=== PATIENT | female | born 1985 | race African-American/Black ===

== ENCOUNTER → 2017-01-12 | Outpatient (CLI) | payer OTHER ==
[2016-05-24 10:40] VITALS: BP 157/80
[~2017-01-12] MED LIST: ALBU8.5H6; AMLO5TAB4 PO; FLUT1DIS3 IH; LOSA1TAB7 PO; METF500T4 PO; METR500T PO; PRED20TA PO; RISP0.2519 PO
--- NOTE | 2017-01-12 13:22 | RAD ---
Indication small palpable abnormality right breast. Grayscale images were obtained. In addition to images submitted by the technologist real time examination was performed by me. At approximately the 3:00 position of the right breast, 3 to 4 cm from the nipple, where the patient's physician reportedly felt a mass there is a small hypoechoic, approximately 5 mm, nodule which has very benign characteristics on ultrasound. It likely reflects either a fibroadenoma or a complicated cyst. No flow is seen within the mass. IMPRESSION: Probable benign small mass 3:00 position right breast. Follow-up ultrasound in 6 months suggested to document stability BI-RADS 3. Probably benign. Follow-up in 6 months
--- NOTE | 2017-01-12 13:27 | RAD ---
DATE: 01/12/2017 EXAM: DIGITAL DIAGNOSTIC BILATERAL HISTORY: Lump right breast COMPARISON: None. This is a initial study. Note is made of the positive family history for breast malignancy This study was interpreted with the benefit of Computerized Aided Detection (CAD). FINDINGS: Breast Density: SCATTERED The breast parenchyma shows scattered fibroglandular densities. Breast parenchyma level B. The area of concern was marked. No abnormality is seen in either breast. No abnormality is seen in the area of concern in the right breast. Targeted ultrasound of the right breast was performed which is the subject of a separate dictation IMPRESSION: Benign findings. If there is a discrete, palpable, mass in the breast biopsy may be warranted despite unremarkable imaging. BI-RADS CATEGORY: 2 BENIGN FINDING(S) RECOMMENDED FOLLOW-UP: CLIN FOLLOW UP IMAGING CLINICALLY INDICATED PQRS compliance statement: Patient information was entered into a reminder system with a target due date as clinically warranted for the next mammogram. Mammography is a sensitive method for finding small breast cancers, but it does not detect them all and is not a substitute for careful clinical examination. A negative mammogram does not negate a clinically suspicious finding and should not result in delay in biopsying a clinically suspicious abnormality. "Our facility is accredited by the [employer] Mammography Program."
== END | disposition home or self-care (01) ==
LOC: US 12:33
PROVIDERS: ATTEND Family Medicine
DX: Z00.01 Encounter for general adult medical examination with abnormal findings (principal); N63 Unspecified lump in breast
CPT/HCPCS: 76641; G0204; 77066

== ENCOUNTER 2017-05-21 16:20 | Emergency (ER) | payer OTHER ==
[2017-05-21 16:42] VITALS: BP 167/84
[2017-05-21] MEDS ORDERED: DIPH25CA58 PO (16:42)
--- NOTE | 2017-05-21 16:42 | PHYS DOC ---
Past Medical History Past Medical History: Arthritis, Asthma, Diabetes-Type II, Hypertension Additional Past Medical Histor: POST DIABETIC TREATED WITH DIET Past Surgical History: Additional Past Surgical Histo: cardiac cath without stent placement Alcohol Use: Occasionally Drug Use: None Adult General Chief Complaint Chief Complaint: INSECT BITE HPI HPI Patient is a 32 year old female presents to the emergency department with an insect sting to the right medial thigh. She states that the insect stung her approximately 15 minutes ago. Chest no complaints of shortness of breath. She states the site of the sting does itch. Review of Systems Review of Systems Constitutional: Denies fever or chills [] Eyes: Denies change in visual acuity, redness, or eye pain [] HENT: Denies nasal congestion or sore throat [] Respiratory: Denies cough or shortness of breath [] Cardiovascular: No additional information not addressed in HPI [] GI: Denies abdominal pain, nausea, vomiting, bloody stools or diarrhea [] : Denies dysuria or hematuria [] Musculoskeletal: Denies back pain or joint pain [] Integument:itching Neurologic: Denies headache, focal weakness or sensory changes [] Endocrine: Denies polyuria or polydipsia [] Allergies Allergies Allergies Coded Allergies Type Severity Reaction Last Updated Verified No Known Drug Allergies 01/18/15 No Physical Exam Physical Exam Constitutional: Well developed, well nourished, no acute distress, non-toxic appearance. [] HENT: Normocephalic, atraumatic, bilateral external ears normal, oropharynx moist, no oral exudates, nose normal. [] Eyes: PERRLA, EOMI, conjunctiva normal, no discharge. [] Neck: Normal range of motion, no tenderness, supple, no stridor. [] Cardiovascular:Heart rate regular rhythm, no murmur [] Lungs & Thorax: Bilateral breath sounds clear to auscultation [] Abdomen: Bowel sounds normal, soft, no tenderness, no masses, no pulsatile masses. [] Skin: Right medial thigh, proximal, 3 cm area of raised skin, mildly pink, nontender to palpate. Back: No tenderness, no CVA tenderness. [] Extremities: No tenderness, no cyanosis, no clubbing, ROM intact, no edema. [] Neurologic: Alert and oriented X 3, normal motor function, normal sensory function, no focal deficits noted. [] Psychologic: Affect normal, judgement normal, mood normal. [] EKG EKG [] Radiology/Procedures Radiology/Procedures [] Course & Med Decision Making Course & Med Decision Making Pertinent Labs and Imaging studies reviewed. (See chart for details) []Patient's having a localized allergic reaction. She'll be given prednisone 50 mg by mouth in the emergency department, Benadryl 25 mg by mouth in the emergency department. She is advised to use [id number] as labeled and is indicated for symptom management. Dragon Disclaimer Dragon Disclaimer This electronic medical record was generated, in whole or in part, using a voice recognition dictation system. Departure Departure Impression: Primary Impression: Allergic reaction to insect sting Disposition: HOME, SELF-CARE Condition: STABLE Referrals: CANDELARIA CRESPO MD (PCP) Patient Instructions: Insect Sting Allergy Scripts Diphenhydramine Hcl (BENADRYL) 25 Mg Capsule 1 CAP PO QHS Y for itching, #20 CAP 1 Refill Prov: DILIP WEBSTER APRN 05/21/17 Problem Qualifiers Primary Impression: Allergic reaction to insect sting Encounter type: initial encounter Injury intent: undetermined intent Qualified Codes: T63.484A - Toxic effect of venom of other arthropod, undetermined, initial encounter DILIP WEBSTER APRN May 21, 2017 16:42
[2017-05-21] MEDS ORDERED: predniSONE 10 MG TABLET PO ONE (16:45)
[2017-05-21] MEDS ORDERED: IBUPROFEN 400 MG TABLET. PO ONE (16:45)
[2017-05-21] MEDS ORDERED: diphenhydrAMINE HCL 25 MG CAPSULE PO ONE (16:45)
== END 2017-05-21 17:06 | disposition home or self-care (01) ==
LOC: ER 16:20
DX: T63.484A Toxic effect of venom of other arthropod, undetermined, initial encounter (principal); M19.90 Unspecified osteoarthritis, unspecified site; J45.909 Unspecified asthma, uncomplicated; E11.9 Type 2 diabetes mellitus without complications; I10 Essential (primary) hypertension; Y92.89 Other specified places as the place of occurrence of the external cause
CPT/HCPCS: 99284; J7512; Q0163

== ENCOUNTER 2017-07-30 08:35 | Inpatient (IN) | payer OTHER ==
[~2017-07-30] VITALS: Ht 170.2 cm; Wt 108.9 kg
[~2017-07-30 08:35] MED LIST changes: +DIPH25CA58 PO
--- NOTE | 2017-07-30 08:52 | PHYS DOC ---
Past Medical History Past Medical History: Arthritis, Asthma, Diabetes-Type II, Hypertension Additional Past Medical Histor: POST DIABETIC TREATED WITH DIET Past Surgical History: Additional Past Surgical Histo: cardiac cath without stent placement Alcohol Use: Occasionally Drug Use: None Adult General Chief Complaint Chief Complaint: ASTHMA HPI HPI Patient is a 32 year old -[place] female who presents with shortness of breath and wheezing. She states her asthma started flaring up yesterday she was seen by [facility] and received Solu-Medrol, chest x-ray Z-Mono and was discharged home. She states this morning she started wheezing again. She 's done for albuterol treatments at home and still feel short of breath. She states she had a fever this morning at home and took Advil. She denies a productive cough chest pain nausea vomiting. Review of Systems Review of Systems Constitutional: Denies fever or chills [] Eyes: Denies change in visual acuity, redness, or eye pain [] HENT: Denies nasal congestion or sore throat [] Respiratory: Denies cough, positive for shortness of breath [] Cardiovascular: No additional information not addressed in HPI [] GI: Denies abdominal pain, nausea, vomiting, bloody stools or diarrhea [] : Denies dysuria or hematuria [] Musculoskeletal: Denies back pain or joint pain [] Integument: Denies rash or skin lesions [] Neurologic: Denies headache, focal weakness or sensory changes [] Endocrine: Denies polyuria or polydipsia [] All other systems were reviewed and found to be within normal limits, except as documented in this note. Current Medications Current Medications Current Medications Medications (Trade) Dose Ordered Sig/Nathaniel Start Time Stop Time Status Last Admin Dose Admin Albuterol Sulfate (Ventolin Neb Soln) 10 mg 1X ONCE 07/30/17 10:30 07/30/17 10:31 DC 07/30/17 10:33 10 MG Albuterol/ Ipratropium (Duoneb) 3 ml 1X ONCE 07/30/17 09:30 07/30/17 09:31 DC 07/30/17 09:43 3 ML Methylprednisolone Sodium Succinate (SOLU-Medrol 125MG VIAL) 125 mg 1X ONCE 07/30/17 09:00 07/30/17 09:01 DC 07/30/17 09:28 125 MG Ondansetron HCl (Zofran) 4 mg PRN Q8HRS PRN 07/30/17 13:45 07/31/17 13:44 UNV Allergies Allergies Allergies Coded Allergies Type Severity Reaction Last Updated Verified No Known Drug Allergies 07/30/17 No Physical Exam Physical Exam Constitutional: Well developed, well nourished, no acute distress, non-toxic appearance. [] HENT: Normocephalic, atraumatic, bilateral external ears normal, oropharynx moist, no oral exudates, nose normal. [] Eyes: PERRLA, EOMI, conjunctiva normal, no discharge. [] Neck: Normal range of motion, no tenderness, supple, no stridor. [] Cardiovascular:Heart rate regular rhythm, no murmur [] Lungs & Thorax: Moderate inspiratory wheezing bilaterally, decreased airflow at the bases Abdomen: Bowel sounds normal, soft, no tenderness, no masses, no pulsatile masses. [] Skin: Warm, dry, no erythema, no rash. [] Back: No tenderness, no CVA tenderness. [] Extremities: No tenderness, no cyanosis, no clubbing, ROM intact, no edema. [] Neurologic: Alert and oriented X 3, normal motor function, normal sensory function, no focal deficits noted. [] Psychologic: Affect normal, judgement normal, mood normal. [] Current Patient Data Vital Signs Vital Signs Date Time Temp Pulse Resp B/P (MAP) Pulse Ox O2 Delivery O2 Flow Rate FiO2 07/30/17 11:40 112 24 142/87 (105) 93 Room Air 07/30/17 08:40 99.3 99.3 Lab Values Laboratory Tests Test 07/30/17 09:22 White Blood Count 7.9 x10^3/uL (4.0-11.0) Red Blood Count 5.13 x10^6/uL (3.50-5.40) Hemoglobin 12.8 g/dL (12.0-15.5) Hematocrit 39.7 % (36.0-47.0) Mean Corpuscular Volume 78 fL (79-100) L Mean Corpuscular Hemoglobin 25 pg (25-35) Mean Corpuscular Hemoglobin Concent 32 g/dL (31-37) Red Cell Distribution Width 15.7 % (11.5-14.5) H Platelet Count 293 x10^3/uL (140-400) Neutrophils (%) (Auto) 70 % (31-73) Lymphocytes (%) (Auto) 23 % (24-48) L Monocytes (%) (Auto) 7 % (0-9) Eosinophils (%) (Auto) 0 % (0-3) Basophils (%) (Auto) 0 % (0-3) Neutrophils # (Auto) 5.5 x10^3uL (1.8-7.7) Lymphocytes # (Auto) 1.8 x10^3/uL (1.0-4.8) Monocytes # (Auto) 0.6 x10^3/uL (0.0-1.1) Eosinophils # (Auto) 0.0 x10^3/uL (0.0-0.7) Basophils # (Auto) 0.0 x10^3/uL (0.0-0.2) Sodium Level 143 mmol/L (136-145) Potassium Level 3.0 mmol/L (3.5-5.1) L Chloride Level 104 mmol/L (98-107) Carbon Dioxide Level 24 mmol/L (21-32) Anion Gap 15 (6-14) H Blood Urea Nitrogen 10 mg/dL (7-20) Creatinine 0.8 mg/dL (0.6-1.0) Estimated GFR (Cockcroft-Gault) 101.2 BUN/Creatinine Ratio 13 (6-20) Glucose Level 125 mg/dL (70-99) H Calcium Level 8.8 mg/dL (8.5-10.1) Total Bilirubin 0.2 mg/dL (0.2-1.0) Aspartate Amino Transferase (AST) 29 U/L (15-37) Alanine Aminotransferase (ALT) 47 U/L (14-59) Alkaline Phosphatase 67 U/L (46-116) Total Protein 7.8 g/dL (6.4-8.2) Albumin 3.9 g/dL (3.4-5.0) Albumin/Globulin Ratio 1.0 (1.0-1.7) Laboratory Tests 07/30/17 09:22 Laboratory Tests 07/30/17 09:22 EKG EKG [] Radiology/Procedures Radiology/Procedures [] Impressions: Asthma exacerbation Course & Med Decision Making Course & Med Decision Making Pertinent Labs and Imaging studies reviewed. (See chart for details) Patient presented with wheezing she received 2 DuoNeb nebs and an hour-long breathing treatment. She states she had influenza that was negative so we will not repeat test her for this. Chest x-ray is pending. Spoke with Dr. Mace excess patient on behalf of Dr. Ojeda. Interim orders have been written. I feel she stable enough for the floor of written every 4 hours albuterol treatments and continued her azithromycin. I also placed consult with pulmonary. I spent approximately 45 minutes working and engaged directly in the patient care providing critical care evaluation this includes but not limited to time spent engaged in work directly related to the individual patients care. I spent time at the bedside, reviewing test results, discussing the case with staff, documenting the medical record and time spent with EMS discussing specific treatment issues when the patient presented and during his evaluation. This includes any discussion and updates with family members and/or patient. Dragon Disclaimer Dragon Disclaimer This electronic medical record was generated, in whole or in part, using a voice recognition dictation system. Departure Departure Impression: Primary Impression: Asthma exacerbation Disposition: ADMITTED INPATIENT Admitting Physician: Rasheed Machado Condition: STABLE Referrals: RASHEED OJEDA MD (PCP) CHERIE MESSINA MD Jul 30, 2017 08:52
[2017-07-30] MEDS ORDERED: methylPREDNISolone SOD SUCC PF 125 MG/2 ML VIAL. IV ONE (09:00)
[2017-07-30] MEDS ORDERED: IPRATRPIUM/ALBUTEROL 0.5/2.5MG 3 ML NEBU. NEB ONE ×2 (09:00→09:30)
[2017-07-30] MEDS ORDERED: ALBUTEROL SULFATE 2.5 MG/3 ML NEBU. CONT NEB ONE (10:30)
[2017-07-30 12:19] LABS: BASO % 0 % (0-3); EOS % 0 % (0-3); HEMATOCRIT 39.7 % (36.0-47.0); HEMOGLOBIN 12.8 g/dL (12.0-15.5); LYMPH # 1.8 x10^3/uL (1.0-4.8); LYMPH % 23 % (24-48); MEAN CORPUSCULAR HEMOGLOBIN 25 pg (25-35); MEAN CORPUSCULAR HGB CONC 32 g/dL (31-37); MEAN CORPUSCULAR VOLUME 78 fL (79-100); MONO % 7 % (0-9); NEUT % 70 % (31-73); PLATELET COUNT 293 x10^3/uL (140-400); RED BLOOD COUNT 5.13 x10^6/uL (3.50-5.40); RED CELL DISTRIBUTION WIDTH 15.7 % (11.5-14.5); WHITE BLOOD COUNT 7.9 x10^3/uL (4.0-11.0)
[2017-07-30 12:32] LABS: ALBUMIN 3.9 g/dL (3.4-5.0); CALCIUM 8.8 mg/dL (8.5-10.1); CREATININE 0.8 mg/dL (0.6-1.0); GFR 101.2; TOTAL BILIRUBIN 0.2 mg/dL (0.2-1.0); TOTAL PROTEIN 7.8 g/dL (6.4-8.2)
--- NOTE | 2017-07-30 13:13 | RAD ---
PA and lateral chest radiographs 07/30/2017. Clinical History: Asthma and wheezing with fever. PA and lateral digital radiographs of the chest were obtained. Comparison study is dated 05/24/2016. The cardiac and mediastinal silhouettes are within normal limits in size and configuration. No pulmonary infiltrate is seen. No pleural effusion or pneumothorax is noted. The osseous structures are grossly intact. Impression: No radiographic evidence of active cardiopulmonary disease.
[2017-07-30] MEDS ORDERED: AZITHROMYCIN 250 MG TABLET. PO ONE (13:45)
[2017-07-30] MEDS ORDERED: ONDANSETRON PF 4 MG/2 ML VIAL. IV PRN (13:45)
[2017-07-30] MEDS: ALBUTEROL SULFATE 2.5 MG/3 ML NEBU. NEB PRN ×2 (14:06→16:55)
[2017-07-30 16:45] VITALS: BP 160/95
[2017-07-30] MEDS ORDERED: ALBUTEROL SULFATE 2.5 MG/3 ML NEBU. NEB PRN (17:00)
[2017-07-30] MEDS: amLODIPine BESYLATE 5 MG TABLET PO SCH (17:52)
[2017-07-30] MEDS: methylPREDNISolone SOD SUCC PF 125 MG/2 ML VIAL. IV SCH (17:53)
[2017-07-30] MEDS ORDERED: HYDR-2762 PO (18:02)
[2017-07-30 18:46] LABS: OBC FLU VALID
[2017-07-30 19:00] VITALS: BP 149/89
[2017-07-30] MEDS: OSELTAMIVIR 75 MG CAPSULE PO SCH (20:08)
[2017-07-30] MEDS: HYDROcodone/APAP 7.5/325MG 1 TAB TABLET PO PRN (20:08)
[2017-07-30] MEDS: ALBUTEROL SULFATE 2.5 MG/3 ML NEBU. NEB SCH ×2 (20:28→22:41)
[2017-07-30] MEDS: LABETALOL HCL 200 MG TABLET PO SCH (21:00)
[2017-07-30 23:00] VITALS: BP 146/89
[2017-07-31] MEDS: methylPREDNISolone SOD SUCC PF 125 MG/2 ML VIAL. IV SCH ×4 (01:14→17:24)
[2017-07-31 03:00] VITALS: BP 149/102
[2017-07-31] MEDS: ALBUTEROL SULFATE 2.5 MG/3 ML NEBU. NEB SCH ×5 (03:41→23:50)
[2017-07-31 06:24] LABS: BASO % 0 % (0-3); EOS % 0 % (0-3); HEMATOCRIT 39.4 % (36.0-47.0); HEMOGLOBIN 12.6 g/dL (12.0-15.5); LYMPH # 1.3 x10^3/uL (1.0-4.8); LYMPH % 18 % (24-48); MEAN CORPUSCULAR HEMOGLOBIN 25 pg (25-35); MEAN CORPUSCULAR HGB CONC 32 g/dL (31-37); MEAN CORPUSCULAR VOLUME 77 fL (79-100); MONO % 5 % (0-9); NEUT % 78 % (31-73); PLATELET COUNT 311 x10^3/uL (140-400); RED BLOOD COUNT 5.14 x10^6/uL (3.50-5.40); RED CELL DISTRIBUTION WIDTH 16.1 % (11.5-14.5); WHITE BLOOD COUNT 7.7 x10^3/uL (4.0-11.0)
[2017-07-31 06:30] LABS: CALCIUM 8.5 mg/dL (8.5-10.1); CREATININE 0.6 mg/dL (0.6-1.0); GFR 141.1
[2017-07-31 07:00] VITALS: BP 164/94
[2017-07-31] MEDS: amLODIPine BESYLATE 5 MG TABLET PO SCH (08:07)
[2017-07-31] MEDS: OSELTAMIVIR 75 MG CAPSULE PO SCH ×2 (08:08→20:40)
[2017-07-31] MEDS: HYDROcodone/APAP 7.5/325MG 1 TAB TABLET PO PRN ×2 (08:08→20:40)
[2017-07-31] MEDS: LABETALOL HCL 200 MG TABLET PO SCH (08:10)
[2017-07-31] MEDS ORDERED: ACETAMINOPHEN 325 MG TABLET. PO PRN (08:45)
--- NOTE | 2017-07-31 09:36 | PDOC1 ---
History and Physical Date of Admission Date of Admission DATE: 07/30/17 Identification/Chief Complaint Chief Complaint Wheezing, shortness of breath Problems: Source Source: Patient History of Present Illness History of Present Illness Pt states that she woke up Sunday not feeling well and having difficulty breathing. Pt went to the ER at [facility] and was given IV steroids and antibiotics and discharged home. Pt did not feel that she was improving and that her wheezing was worse so came to [place] ER yesterday. Wheezing unimproved with albuterol treatments. Pt feels that she is doing slightly better this morning but still feels significantly short of air with any activity. Past Medical History Cardiovascular: HTN Pulmonary: Asthma GI: No pertinent hx Heme/Onc: No pertinent hx Hepatobiliary: No pertinent hx Psych: Anxiety, Bipolar, Depression Musculoskeletal: Osteoarthritis Rheumatologic: No pertinent hx Infectious disease: No pertinent hx ENT: No pertinent hx Renal/: No pertinent hx Endocrine: Diabetes Dermatology: No pertinent hx Past Surgical History Past Surgical History: Family History Family History: Asthma, Depression, Diabetes, Hypertension Social History Smoke: No ALCOHOL: occassional Drugs: None Current Problem List Problem List Problems Medical Problems: (1) Asthma exacerbation Status: Acute Problems: Current Medications Current Medications Current Medications Methylprednisolone Sodium Succinate (SOLU-Medrol 125MG VIAL) 125 mg 1X ONCE IV Last administered on 07/30/17 09:28; Start 07/30/17 at 09:00; Stop at 09:01; Status DC Albuterol/ Ipratropium (Duoneb) 3 ml 1X ONCE NEB Last administered on 09:09; Start 07/30/17 at 09:00; Stop 07/30/17 at 09:01; Status DC Albuterol/ Ipratropium (Duoneb) 3 ml 1X ONCE NEB Last administered on 09:43; Start 07/30/17 at 09:30; Stop 07/30/17 at 09:31; Status DC Albuterol Sulfate (Ventolin Neb Soln) 10 mg 1X ONCE CONT NEB Last administered on 07/30/17 10:33; Start 07/30/17 at 10:30; Stop 07/30/17 at 10 :31; Status DC Ondansetron HCl (Zofran) 4 mg PRN Q8HRS PRN IV NAUSEA/VOMITING; Start at 13:45; Stop 07/31/17 at 13:44 Albuterol Sulfate (Ventolin Neb Soln) 2.5 mg PRN Q4HRS PRN NEB SOA Last administered on 07/30/17 16:55; Start 07/30/17 at 13:45; Stop 07/30/17 at 16 :57; Status DC Azithromycin (Zithromax) 250 mg 1X ONCE PO Last administered on 07/30/17 14: 07; Start 07/30/17 at 13:45; Stop 07/30/17 at 13:47; Status DC Amlodipine Besylate (Norvasc) 5 mg DAILY PO Last administered on 07/31/17 08: 07; Start 07/30/17 at 17:00 Labetalol HCl (Trandate) 400 mg BID PO ; Start 07/30/17 at 21:00; Stop at 08:45; Status DC Albuterol Sulfate (Ventolin Neb Soln) 2.5 mg PRN Q2HR PRN NEB SOA; Start 07/30 at 17:00 Albuterol Sulfate (Ventolin Neb Soln) 2.5 mg Q4HRS NEB Last administered on 06:24; Start 07/30/17 at 17:30 Methylprednisolone Sodium Succinate (SOLU-Medrol 125MG VIAL) 60 mg Q6HRS IV Last administered on 07/31/17 06:30; Start 07/30/17 at 18:00 Oseltamivir Phosphate (Tamiflu) 75 mg BID PO Last administered on 07/31/17 08 :08; Start 07/30/17 at 21:00; Stop 08/05/17 at 20:59 Acetaminophen/ Hydrocodone Bitart (Lortab 7.5/325) 1 tab PRN BID PRN PO PAIN Last administered on 07/31/17 08:08; Start 07/30/17 at 19:00 Hydrochlorothiazide (Microzide) 12.5 mg DAILY PO ; Start 07/31/17 at 09:00 Acetaminophen (Tylenol) 325 mg PRN Q6HRS PRN PO MILD PAIN / TEMP; Start at 08:45 Active Scripts Active Reported Hydrocodone-Apap 7.5-325 (Hydrocodone Bit/Acetaminophen) 1 Each Tablet 1 Tab PO BID PRN Norvasc (Amlodipine Besylate) 5 Mg Tablet 1 Tab PO DAILY Indication: blood pressure Next dose: 12/28/14 Advair 250-50 Diskus (Fluticasone/Salmeterol) 1 Each Disk.w.dev 1 Each IH IndicatioN: asthma Next dose: 12/27/14 evening Albuterol Sulfate Hfa Inhaler (Albuterol Sulfate) 8.5 Gm Hfa.aer.ad Indication: asthma Next dose: as needed Allergies Allergies: Coded Allergies: No Known Drug Allergies (Unverified , 07/30/17) ROS General: YES: Malaise, Other (fever), No: Chills, Night Sweats PSYCHOLOGICAL ROS: No: Anxiety, Depression Eyes: No Decreased vision, No Eye Pain HEENT: No: Nasal congestion, Sore Throat ALLERGY AND IMMUNOLOGY: No: Hives, Post Nasal Drip Respiratory: YES: Cough, Shortness of breath, Wheezing Cardiovascular: No Chest Pain, No Palpitations, No Edema Gastrointestinal: No Nausea, No Vomiting, No Abdominal Pain, No Diarrhea, No Constipation Genitourinary: No Dysuria, No Urgency Musculoskeletal: Yes Joint Pain, No Muscle Pain Neurological: No Impaired Coord/balance, No Numbness/Tingling Skin: No Rash, No Skin Lesion Changes Physical Exam General: Alert, Oriented X3, Cooperative, No acute distress HEENT: Atraumatic, PERRLA, EOMI, Mucous membr. moist/pink Lungs: Other (expiratory wheezing throughout) Heart: RRR, no rubs, no gallops, no murmurs Abdomen: Normal bowel sounds, Soft, No tenderness, No hepatosplenomegaly Extremities: No clubbing, No cyanosis, No edema Skin: No rashes, No breakdown, No significant lesion Neuro: Normal speech, Strength at 5/5 X4 ext, Normal tone, Sensation intact, Cranial nerves 3-12 NL Psych/Mental Status: Mental status NL, Mood NL Vitals Vitals Vital Signs Date Time Temp Pulse Resp B/P (MAP) Pulse Ox O2 Delivery O2 Flow Rate FiO2 07/31/17 08:10 79 164/94 07/31/17 08:08 96 Room Air 07/31/17 07:00 97.9 18 97.9 Labs Labs Laboratory Tests Test 07/30/17 09:22 07/30/17 18:16 07/31/17 05:40 White Blood Count 7.9 x10^3/uL (4.0-11.0) 7.7 x10^3/uL (4.0-11.0) Red Blood Count 5.13 x10^6/uL (3.50-5.40) 5.14 x10^6/uL (3.50-5.40) Hemoglobin 12.8 g/dL (12.0-15.5) 12.6 g/dL (12.0-15.5) Hematocrit 39.7 % (36.0-47.0) 39.4 % (36.0-47.0) Mean Corpuscular Volume 78 fL (79-100) 77 fL (79-100) Mean Corpuscular Hemoglobin 25 pg (25-35) 25 pg (25-35) Mean Corpuscular Hemoglobin Concent 32 g/dL (31-37) 32 g/dL (31-37) Red Cell Distribution Width 15.7 % (11.5-14.5) 16.1 % (11.5-14.5) Platelet Count 293 x10^3/uL (140-400) 311 x10^3/uL (140-400) Neutrophils (%) (Auto) 70 % (31-73) 78 % (31-73) Lymphocytes (%) (Auto) 23 % (24-48) 18 % (24-48) Monocytes (%) (Auto) 7 % (0-9) 5 % (0-9) Eosinophils (%) (Auto) 0 % (0-3) 0 % (0-3) Basophils (%) (Auto) 0 % (0-3) 0 % (0-3) Neutrophils # (Auto) 5.5 x10^3uL (1.8-7.7) 6.0 x10^3uL (1.8-7.7) Lymphocytes # (Auto) 1.8 x10^3/uL (1.0-4.8) 1.3 x10^3/uL (1.0-4.8) Monocytes # (Auto) 0.6 x10^3/uL (0.0-1.1) 0.4 x10^3/uL (0.0-1.1) Eosinophils # (Auto) 0.0 x10^3/uL (0.0-0.7) 0.0 x10^3/uL (0.0-0.7) Basophils # (Auto) 0.0 x10^3/uL (0.0-0.2) 0.0 x10^3/uL (0.0-0.2) Sodium Level 143 mmol/L (136-145) 139 mmol/L (136-145) Potassium Level 3.0 mmol/L (3.5-5.1) 4.0 mmol/L (3.5-5.1) Chloride Level 104 mmol/L (98-107) 103 mmol/L (98-107) Carbon Dioxide Level 24 mmol/L (21-32) 25 mmol/L (21-32) Anion Gap 15 (6-14) 11 (6-14) Blood Urea Nitrogen 10 mg/dL (7-20) 9 mg/dL (7-20) Creatinine 0.8 mg/dL (0.6-1.0) 0.6 mg/dL (0.6-1.0) Estimated GFR (Cockcroft-Gault) 101.2 141.1 BUN/Creatinine Ratio 13 (6-20) Glucose Level 125 mg/dL (70-99) 150 mg/dL (70-99) Calcium Level 8.8 mg/dL (8.5-10.1) 8.5 mg/dL (8.5-10.1) Total Bilirubin 0.2 mg/dL (0.2-1.0) Aspartate Amino Transf (AST/SGOT) 29 U/L (15-37) Alanine Aminotransferase (ALT/SGPT) 47 U/L (14-59) Alkaline Phosphatase 67 U/L (46-116) Total Protein 7.8 g/dL (6.4-8.2) Albumin 3.9 g/dL (3.4-5.0) Albumin/Globulin Ratio 1.0 (1.0-1.7) Influenza Type A Antigen Positive (NEGATIVE) Influenza Type B Antigen Negative (NEGATIVE) Laboratory Tests Test 07/30/17 18:16 07/31/17 05:40 Influenza Type A Antigen Positive (NEGATIVE) Influenza Type B Antigen Negative (NEGATIVE) White Blood Count 7.7 x10^3/uL (4.0-11.0) Red Blood Count 5.14 x10^6/uL (3.50-5.40) Hemoglobin 12.6 g/dL (12.0-15.5) Hematocrit 39.4 % (36.0-47.0) Mean Corpuscular Volume 77 fL (79-100) Mean Corpuscular Hemoglobin 25 pg (25-35) Mean Corpuscular Hemoglobin Concent 32 g/dL (31-37) Red Cell Distribution Width 16.1 % (11.5-14.5) Platelet Count 311 x10^3/uL (140-400) Neutrophils (%) (Auto) 78 % (31-73) Lymphocytes (%) (Auto) 18 % (24-48) Monocytes (%) (Auto) 5 % (0-9) Eosinophils (%) (Auto) 0 % (0-3) Basophils (%) (Auto) 0 % (0-3) Neutrophils # (Auto) 6.0 x10^3uL (1.8-7.7) Lymphocytes # (Auto) 1.3 x10^3/uL (1.0-4.8) Monocytes # (Auto) 0.4 x10^3/uL (0.0-1.1) Eosinophils # (Auto) 0.0 x10^3/uL (0.0-0.7) Basophils # (Auto) 0.0 x10^3/uL (0.0-0.2) Sodium Level 139 mmol/L (136-145) Potassium Level 4.0 mmol/L (3.5-5.1) Chloride Level 103 mmol/L (98-107) Carbon Dioxide Level 25 mmol/L (21-32) Anion Gap 11 (6-14) Blood Urea Nitrogen 9 mg/dL (7-20) Creatinine 0.6 mg/dL (0.6-1.0) Estimated GFR (Cockcroft-Gault) 141.1 Glucose Level 150 mg/dL (70-99) Calcium Level 8.5 mg/dL (8.5-10.1) VTE Prophylaxis Ordered VTE Prophylaxis Devices: Yes VTE Pharmacological Prophylaxi: No Assessment/Plan Assessment/Plan Pt is a 32yo AAF admitted for asthma exacerbation 1)Asthma exacerbation- 2/2 Influenza A infection. Pt currently being treated with IV steroids 2)Influenza A- pt being treated with Tamiflu 3)HTN- uncontrolled. Pt has not been taking her Labetalol because it made her "feel funny". Pt continued on Norvasc 5mg. Will start HCTZ 12.5mg. Pt aware that she will need to stop this medication if she becomes (as she has been actively trying to conceive) 4)Chronic pain- from OA and low back pain. Pt continued on Hydrocodone 7.5/ 325mg 5)DM2- previously well controlled. HbA1C pending. Pt continued on Metformin 1000mg BID 6)Hypokalemia- resolved CANDELARIA CRESPO MD Jul 31, 2017 09:36
[2017-07-31] MEDS: hydroCHLOROthiazide 12.5 MG CAPSULE PO SCH (09:53)
[2017-07-31] MEDS ORDERED: methylPREDNISolone SOD SUCC PF 125 MG/2 ML VIAL. IV SCH (10:00)
[2017-07-31 11:00] VITALS: BP 154/92
[2017-07-31 15:00] VITALS: BP 155/96
--- NOTE | 2017-07-31 15:27 | PDOC ---
PULMONARY PROGRESS NOTES Vitals Vital Signs Date Time Temp Pulse Resp B/P (MAP) Pulse Ox O2 Delivery O2 Flow Rate FiO2 07/31/17 15:15 Room Air 07/31/17 11:00 97.9 75 18 154/92 (112) 96 97.9 Labs Laboratory Tests Test 07/30/17 09:22 07/30/17 18:16 07/31/17 05:40 White Blood Count 7.9 x10^3/uL (4.0-11.0) 7.7 x10^3/uL (4.0-11.0) Red Blood Count 5.13 x10^6/uL (3.50-5.40) 5.14 x10^6/uL (3.50-5.40) Hemoglobin 12.8 g/dL (12.0-15.5) 12.6 g/dL (12.0-15.5) Hematocrit 39.7 % (36.0-47.0) 39.4 % (36.0-47.0) Mean Corpuscular Volume 78 fL (79-100) 77 fL (79-100) Mean Corpuscular Hemoglobin 25 pg (25-35) 25 pg (25-35) Mean Corpuscular Hemoglobin Concent 32 g/dL (31-37) 32 g/dL (31-37) Red Cell Distribution Width 15.7 % (11.5-14.5) 16.1 % (11.5-14.5) Platelet Count 293 x10^3/uL (140-400) 311 x10^3/uL (140-400) Neutrophils (%) (Auto) 70 % (31-73) 78 % (31-73) Lymphocytes (%) (Auto) 23 % (24-48) 18 % (24-48) Monocytes (%) (Auto) 7 % (0-9) 5 % (0-9) Eosinophils (%) (Auto) 0 % (0-3) 0 % (0-3) Basophils (%) (Auto) 0 % (0-3) 0 % (0-3) Neutrophils # (Auto) 5.5 x10^3uL (1.8-7.7) 6.0 x10^3uL (1.8-7.7) Lymphocytes # (Auto) 1.8 x10^3/uL (1.0-4.8) 1.3 x10^3/uL (1.0-4.8) Monocytes # (Auto) 0.6 x10^3/uL (0.0-1.1) 0.4 x10^3/uL (0.0-1.1) Eosinophils # (Auto) 0.0 x10^3/uL (0.0-0.7) 0.0 x10^3/uL (0.0-0.7) Basophils # (Auto) 0.0 x10^3/uL (0.0-0.2) 0.0 x10^3/uL (0.0-0.2) Sodium Level 143 mmol/L (136-145) 139 mmol/L (136-145) Potassium Level 3.0 mmol/L (3.5-5.1) 4.0 mmol/L (3.5-5.1) Chloride Level 104 mmol/L (98-107) 103 mmol/L (98-107) Carbon Dioxide Level 24 mmol/L (21-32) 25 mmol/L (21-32) Anion Gap 15 (6-14) 11 (6-14) Blood Urea Nitrogen 10 mg/dL (7-20) 9 mg/dL (7-20) Creatinine 0.8 mg/dL (0.6-1.0) 0.6 mg/dL (0.6-1.0) Estimated GFR (Cockcroft-Gault) 101.2 141.1 BUN/Creatinine Ratio 13 (6-20) Glucose Level 125 mg/dL (70-99) 150 mg/dL (70-99) Calcium Level 8.8 mg/dL (8.5-10.1) 8.5 mg/dL (8.5-10.1) Total Bilirubin 0.2 mg/dL (0.2-1.0) Aspartate Amino Transf (AST/SGOT) 29 U/L (15-37) Alanine Aminotransferase (ALT/SGPT) 47 U/L (14-59) Alkaline Phosphatase 67 U/L (46-116) Total Protein 7.8 g/dL (6.4-8.2) Albumin 3.9 g/dL (3.4-5.0) Albumin/Globulin Ratio 1.0 (1.0-1.7) Influenza Type A Antigen Positive (NEGATIVE) Influenza Type B Antigen Negative (NEGATIVE) Laboratory Tests Test 07/30/17 18:16 07/31/17 05:40 Influenza Type A Antigen Positive (NEGATIVE) Influenza Type B Antigen Negative (NEGATIVE) White Blood Count 7.7 x10^3/uL (4.0-11.0) Red Blood Count 5.14 x10^6/uL (3.50-5.40) Hemoglobin 12.6 g/dL (12.0-15.5) Hematocrit 39.4 % (36.0-47.0) Mean Corpuscular Volume 77 fL (79-100) Mean Corpuscular Hemoglobin 25 pg (25-35) Mean Corpuscular Hemoglobin Concent 32 g/dL (31-37) Red Cell Distribution Width 16.1 % (11.5-14.5) Platelet Count 311 x10^3/uL (140-400) Neutrophils (%) (Auto) 78 % (31-73) Lymphocytes (%) (Auto) 18 % (24-48) Monocytes (%) (Auto) 5 % (0-9) Eosinophils (%) (Auto) 0 % (0-3) Basophils (%) (Auto) 0 % (0-3) Neutrophils # (Auto) 6.0 x10^3uL (1.8-7.7) Lymphocytes # (Auto) 1.3 x10^3/uL (1.0-4.8) Monocytes # (Auto) 0.4 x10^3/uL (0.0-1.1) Eosinophils # (Auto) 0.0 x10^3/uL (0.0-0.7) Basophils # (Auto) 0.0 x10^3/uL (0.0-0.2) Sodium Level 139 mmol/L (136-145) Potassium Level 4.0 mmol/L (3.5-5.1) Chloride Level 103 mmol/L (98-107) Carbon Dioxide Level 25 mmol/L (21-32) Anion Gap 11 (6-14) Blood Urea Nitrogen 9 mg/dL (7-20) Creatinine 0.6 mg/dL (0.6-1.0) Estimated GFR (Cockcroft-Gault) 141.1 Glucose Level 150 mg/dL (70-99) Calcium Level 8.5 mg/dL (8.5-10.1) Medications Active Scripts Medications Dose Route/Sig Max Daily Dose Days Date Category Dose Instructions Hydrocodone-Apap 7.5-325 (Hydrocodone Bit/Acetaminophen) 1 Each Tablet 1 Tab PO BID PRN 07/30/17 Reported Norvasc (Amlodipine Besylate) 5 Mg Tablet 1 Tab PO DAILY 12/27/14 Reported Indication: blood pressure Next dose: 12/28/14 Metformin Hcl 500 Mg Tablet 1 Tab PO BID 09/21/14 Reported IndicatioN: diabetes Next dose: 12/29/14 am Advair 250-50 Diskus (Fluticasone/Salmeterol) 1 Each Disk.w.dev 1 Each IH 10/25/13 Reported IndicatioN: asthma Next dose: 12/27/14 evening Albuterol Sulfate Hfa Inhaler (Albuterol Sulfate) 8.5 Gm Hfa.aer.ad 09/20/13 Reported Indication: asthma Next dose: as needed Impression . FULL NOTE DICTATED THANKS ASTHMA EXACERBATION SAMSON TOBAR MD Jul 31, 2017 15:27
[2017-07-31 19:00] VITALS: BP 164/94
--- NOTE | 2017-07-31 19:10 | CONS ---
DATE OF CONSULTATION: 07/31/2017 ATTENDING PHYSICIAN: Dr. Rusty Iqbal REASON FOR CONSULTATION: The patient seen in pulmonary consultation at the request of Dr. Ojeda for asthma increasing shortness of breath. HISTORY OF PRESENT ILLNESS: The patient is a 32-year-old with a history of asthma, never smoked. She normally uses Advair and p.r.n. albuterol, presented with increasing shortness of breath. She was actually seen in [facility] for increasing shortness of breath, was treated for acute exacerbation of asthma. Discharged home. She presented because of increasing shortness of breath, body aches. She was tested for influenza and was positive for influenza. She is currently being treated. She reports no productive cough, wheezing, cough, mostly nonproductive. No chest pain. No pressure. PAST MEDICAL HISTORY: Hypertension, asthma, bipolar disorder, osteoarthritis. PAST SURGICAL HISTORY: Previous . FAMILY HISTORY: Depression, asthma, diabetes, hypertension. ALLERGIES: No known drug allergies. REVIEW OF SYSTEMS: As indicated above, otherwise, a 10-point system was reviewed and negative. CONSTITUTIONAL: No fever or chills. EYES: No changes in visual acuity. HENT: No nasal congestion, some sore throat. RESPIRATORY: As indicated above. CARDIOVASCULAR: No chest pain or pressure. GASTROINTESTINAL: No nausea, vomiting, diarrhea. GENITOURINARY: No dysuria or frequency. MUSCULOSKELETAL: As indicated above. SKIN: No new skin rashes. NEUROLOGIC: No headaches, diplopia or blurred vision. CURRENT MEDICATIONS: List was reviewed. SOCIAL HISTORY: She has never smoked. PHYSICAL EXAMINATION: GENERAL: Pleasant individual in no respiratory distress. VITAL SIGNS: T-max 99.4 and room air saturation 97%. HEENT: Eyes, the sclerae were nonicteric. NECK: Jugular venous distention was not elevated. No lymphadenopathy. CHEST: Full expansion. LUNGS: Expiratory wheezes with no rhonchi. CARDIOVASCULAR: Regular rate and rhythm with S1, S2, no S3. ABDOMEN: Soft, nontender, nondistended. EXTREMITIES: No clubbing, cyanosis or pitting edema. NEUROLOGIC: The patient was awake, alert, following commands. A detailed neuro exam was not performed. LABORATORY DATA: Reviewed. White count was normal, hemoglobin and hematocrit were noted. Electrolytes were noted. Potassium was low. Serology for influenza A was negative. IMPRESSION: 1. Acute respiratory distress secondary to acute exacerbation of chronic obstructive pulmonary disease. 2. Acute exacerbation of chronic obstructive pulmonary disease secondary to influenza. 3. Positive influenza screen. 4. Body aches and myalgias secondary to influenza. 5. Bipolar disorder. 6. Osteoarthritis. 7. Hypertension. PLAN: 1. The patient was admitted due to the fact that she was having significant respiratory distress. She failed outpatient therapy. 2. Continue current medical regimen. 3. The patient has significant periods of wheezing on exam and starts to have paroxysmal coughing spells, we will continue current steroids. I have informed the patient that her symptoms may last a prolonged period of time up to 6 weeks before she totally feels better. I do appreciate the privilege in sharing in the patient's care. SAMSON TOBAR MD DR: LEXIE/hang JOB#: [id number] / [id number]
[2017-07-31 23:00] VITALS: BP 156/86
[2017-08-01] MEDS: methylPREDNISolone SOD SUCC PF 125 MG/2 ML VIAL. IV SCH ×2 (00:22→06:00)
[2017-08-01 03:00] VITALS: BP 159/100
[2017-08-01] MEDS: ALBUTEROL SULFATE 2.5 MG/3 ML NEBU. NEB SCH ×2 (03:15→07:18)
[2017-08-01 07:00] VITALS: BP 143/88
[2017-08-01] MEDS ORDERED: PRED-220 PO (07:45)
[2017-08-01] MEDS ORDERED: METF1000 PO (07:45)
[2017-08-01] MEDS ORDERED: HYDR12.53 PO (07:45)
[2017-08-01] MEDS ORDERED: OSEL75CA PO (07:45)
[2017-08-01] MEDS ORDERED: ALBU2.5V5 NEB (07:45)
--- NOTE | 2017-08-01 07:52 | PDOC3 ---
*Discharge Summary* Date of Admission: Jul 30, 2017 Date of Discharge: Aug 01, 2017 Admitting Diagnosis Problems Medical Problems: (1) Asthma exacerbation Status: Acute Problems: Final Diagnosis Asthma exacerbation- 2/2 Influenza A infection, HTN, Chronic pain, DM2, Hypokalemia- resolved CONSULTS Pulmonary Procedures CXR- no acute findings Brief Hospital Course DISCHARGE PHYSICAL EXAM General: Alert, Oriented X3, Cooperative, No acute distress HEENT: Atraumatic, PERRLA, EOMI, Mucous membr. moist/pink Lungs: Other (expiratory wheezing throughout but improved from yesterday) Heart: RRR, no rubs, no gallops, no murmurs Abdomen: Normal bowel sounds, Soft, No tenderness, No hepatosplenomegaly Extremities: No clubbing, No cyanosis, No edema Skin: No rashes, No breakdown, No significant lesion Neuro: Normal speech, Strength at 5/5 X4 ext, Normal tone, Sensation intact, Cranial nerves 3-12 NL Psych/Mental Status: Mental status NL, Mood NL Pt is a 32yo AAF admitted for asthma exacerbation 1)Asthma exacerbation- 2/2 Influenza A infection. Pt currently being treated with IV steroids. Feeling better and would like to go home today. Would like to discharge her on Prednisone 60mg for the next 7 days and have her follow up within the next week to likely give her additional prednisone for a longer taper if okay with pulmonary 2)Influenza A- pt being treated with Tamiflu 3)HTN- uncontrolled. Pt was no taking her Labetalol because it made her "feel funny". Pt continued on Norvasc 5mg and started on HCTZ 12.5mg. Pt aware that she will need to stop this medication if she becomes (as she has been actively trying to conceive) 4)Chronic pain- from OA and low back pain. Pt continued on Hydrocodone 7.5/ 325mg 5)DM2- well controlled, currently exacerbated by steroids. HbA1C this admission was 6.5. Pt continued on Metformin 1000mg BID 6)Hypokalemia- resolved Disposition/Orders: D/C to Home CONDITION AT DISCHARGE: Improved, Stable Diet: 2 gr sodium, Consistent Carbohydrate Home Meds Active Scripts Prednisone (PREDNISONE) 10 Mg Tablet, 60 MG PO DAILY for 7 Days, #42 TAB Prov:CANDELARIA CRESPO MD 08/01/17 Oseltamivir Phosphate (TAMIFLU) 75 Mg Capsule, 75 MG PO BID for 4 Days, #8 CAP Prov:CANDELARIA CRESPO MD 08/01/17 Metformin Hcl (GLUCOPHAGE) 1,000 Mg Tablet, 1000 MG PO BIDWMEALS for 30 Days, # 60 TAB Prov:CANDELARIA CRESPO MD 08/01/17 Hydrochlorothiazide (HYDROCHLOROTHIAZIDE CAPSULE ) 12.5 Mg Capsule, 12.5 MG PO DAILY for 30 Days, #30 CAP Prov:CANDELARIA CRESPO MD 08/01/17 Albuterol Sulfate (ALBUTEROL SULFATE NEB SOLN) 2.5 Mg/3 Ml Vial.neb, 2.5 MG NEB PRN Q2HR Y for SOA for 30 Days, #120 EACH Prov:CANDELARIA CRESPO MD 08/01/17 Reported Medications Hydrocodone Bit/Acetaminophen (HYDROCODONE-APAP 7.5-325 ) 1 Each Tablet, 1 TAB PO BID Y for PAIN, TAB 0 Refills 07/30/17 Amlodipine Besylate (NORVASC) 5 Mg Tablet, 1 TAB PO DAILY for htn, #30 TAB 5 Refills Indication: blood pressure Next dose: 12/28/14 12/27/14 Fluticasone/Salmeterol (ADVAIR 250-50 DISKUS) 1 Each Disk.w.dev, 1 EACH IH for asthma IndicatioN: asthma Next dose: 12/27/14 evening 10/25/13 Albuterol Sulfate (ALBUTEROL SULFATE HFA INHALER) 8.5 Gm Hfa.aer.ad Indication: asthma Next dose: as needed 09/20/13 Discontinued Reported Medications Metformin Hcl (METFORMIN HCL) 500 Mg Tablet, 1 TAB PO BID for dm, #60 TAB 3 Refills IndicatioN: diabetes Next dose: 12/29/14 am 09/21/14 Scheduled Amlodipine Besylate (Norvasc), 1 TAB PO DAILY, (Reported) Hydrochlorothiazide (Hydrochlorothiazide Capsule ), 12.5 MG PO DAILY Metformin Hcl (Glucophage), 1,000 MG PO BIDWMEALS Oseltamivir Phosphate (Tamiflu), 75 MG PO BID Prednisone (Prednisone), 60 MG PO DAILY Scheduled PRN Albuterol Sulfate (Albuterol Sulfate Neb Soln), 2.5 MG NEB PRN Q2HR PRN for SOA Hydrocodone Bit/Acetaminophen (Hydrocodone-Apap 7.5-325 ), 1 TAB PO BID PRN for PAIN, (Reported) Miscellaneous Medications Albuterol Sulfate (Albuterol Sulfate Hfa Inhaler), (Reported) Fluticasone/Salmeterol (Advair 250-50 Diskus), 1 EACH IH, (Reported) Discontinued Medications Metformin Hcl (Metformin Hcl), 1 TAB PO BID, (Reported) Scripts Prednisone (PREDNISONE) 10 Mg Tablet 60 MG PO DAILY for 7 Days, #42 TAB Prov: CANDELARIA CRESPO MD 08/01/17 Oseltamivir Phosphate (TAMIFLU) 75 Mg Capsule 75 MG PO BID for 4 Days, #8 CAP Prov: CANDELARIA CRESPO MD 08/01/17 Metformin Hcl (GLUCOPHAGE) 1,000 Mg Tablet 1000 MG PO BIDWMEALS for 30 Days, #60 TAB Prov: CANDELARIA CRESPO MD 08/01/17 Hydrochlorothiazide (HYDROCHLOROTHIAZIDE CAPSULE ) 12.5 Mg Capsule 12.5 MG PO DAILY for 30 Days, #30 CAP Prov: CANDELARIA CRESPO MD 08/01/17 Albuterol Sulfate (ALBUTEROL SULFATE NEB SOLN) 2.5 Mg/3 Ml Vial.neb 2.5 MG NEB PRN Q2HR Y for SOA for 30 Days, #120 EACH Prov: CANDELARIA CRESPO MD 08/01/17 PCP Follow up with Dr. Crespo in 5-7 days Time Spent Total time spent with patient [] minutes for coordination of care, counseling, and education. CANDELARIA CRESPO MD Aug 01, 2017 07:52
[2017-08-01] MEDS: hydroCHLOROthiazide 12.5 MG CAPSULE PO SCH (08:17)
[2017-08-01 08:18] VITALS: BP 143/88
[2017-08-01] MEDS: OSELTAMIVIR 75 MG CAPSULE PO SCH (08:18)
[2017-08-01] MEDS: amLODIPine BESYLATE 5 MG TABLET PO SCH (08:18)
== END 2017-08-01 09:45 | disposition home or self-care (01) | DRG 194 ==
LOC: ER 08:35 → 5 SOUTH 12:30
PROVIDERS: ADMIT Family Medicine; ATTEND Family Medicine
DX: J10.1 Influenza due to other identified influenza virus with other respiratory manifestations (principal); J45.901 Unspecified asthma with (acute) exacerbation; J44.1 Chronic obstructive pulmonary disease with (acute) exacerbation; E87.6 Hypokalemia; M19.90 Unspecified osteoarthritis, unspecified site; I10 Essential (primary) hypertension; E11.9 Type 2 diabetes mellitus without complications; F31.9 Bipolar disorder, unspecified; F41.9 Anxiety disorder, unspecified; G89.29 Other chronic pain; T38.0X5A Adverse effect of glucocorticoids and synthetic analogues, initial encounter; Z79.84 Long term (current) use of oral hypoglycemic drugs; Z81.8 Family history of other mental and behavioral disorders; Z82.49 Family history of ischemic heart disease and other diseases of the circulatory system; Z82.5 Family history of asthma and other chronic lower respiratory diseases; Z83.3 Family history of diabetes mellitus
CPT/HCPCS: 36415; 71020; 80048; 80053; 83036; 85025; 87804; 94640; 94644; 94760; J2930; J7613; J7620; Q0144

== ENCOUNTER 2017-09-18 08:47 | Emergency (ER) | payer OTHER ==
[2017-09-18] MEDS: predniSONE 10 MG TABLET PO ×2 (09:30)
[2017-09-18] MEDS: IPRATRPIUM/ALBUTEROL 0.5/2.5MG 3 ML NEBU. NEB ×2 (09:44)
== END 2017-09-18 10:28 | disposition home or self-care (01) ==
LOC: ER 08:47
DX: J45.901 Unspecified asthma with (acute) exacerbation (principal); M19.90 Unspecified osteoarthritis, unspecified site; E11.9 Type 2 diabetes mellitus without complications; I10 Essential (primary) hypertension
CPT/HCPCS: 94640; 99283-25; J7512; J7620